=== PATIENT | female | born 1975 | race Caucasian/White ===

== ENCOUNTER 2016-08-19 22:07 | Emergency (ER) | payer OTHER ==
[~2016-08-19] VITALS: Ht 157.4 cm; Wt 108.0 kg
[~2016-08-19 22:07] MED LIST: AMOXICILLIN500 M2 PO; AUGMENTIN 875 M1 TAB PO; AUGMENTIN 875875 MG PO; BACTRIM DS 8001 TA1 PO; BALSALAZIDE DI750 MG; BENTYL10 MG; BP MED PO; CEPHALEXIN500 M1 PO; CIPRODEX 0.3%-7.5 ML OT; CLINDAMYCIN HC300 MG PO; COLACE100 MG PO; CYCLOBENZAPRINE10 MG PO; Coumadin10 MG PO; DIFLUCAN150 MG PO; FOLGARD TABLET1 EACH PO; FOLIC ACID1 MG; HYDROCHLOROTHIA25 MG PO; HYDROCODONE BIT1 T11 PO; KEFLEX500 MG PO; LASIX20 MG PO; LEVOFLOXACIN500 MG PO; LISINOPRIL10 M1 PO; LORAZEPAM2 MG PO; MOTRIN400 MG PO; MOTRIN600 MG PO; PLAVIX75 MG PO; PREDNISONE10 MG PO; PRILOSEC20 M1 PO; REMERON30 MG PO; TOPROL-XL50 MG PO; TYLENOL325 M1 PO; VALIUM10 MG; VICODIN 5/500 505 MG PO; VICODIN 500 MG-1 TAB PO; VISTARIL25 M1 PO; ZITHROMAX Z PA250 MG PO; ZOCOR20 MG PO
== END 2016-08-19 23:14 | disposition home or self-care (01) ==
LOC: ED 22:07
DX: S91.312A Laceration without foreign body, left foot, initial encounter (principal); F17.200 Nicotine dependence, unspecified, uncomplicated; D68.51 Activated protein C resistance; Z87.442 Personal history of urinary calculi; Z79.01 Long term (current) use of anticoagulants; Z79.899 Other long term (current) drug therapy; Z88.1 Allergy status to other antibiotic agents; Z88.5 Allergy status to narcotic agent; W22.8XXA Striking against or struck by other objects, initial encounter; Y93.89 Activity, other specified; Y92.89 Other specified places as the place of occurrence of the external cause; Y99.9 Unspecified external cause status

== ENCOUNTER 2016-10-15 22:05 | Emergency (ER) | payer OTHER ==
[~2016-10-15] VITALS: Ht 152.4 cm; Wt 104.3 kg
[2016-10-15] MEDS ORDERED: Motrin,Rufen800 MG PO (22:21)
== END 2016-10-15 22:28 | disposition home or self-care (01) ==
LOC: ED 22:05
DX: M67.432 Ganglion, left wrist (principal); F17.200 Nicotine dependence, unspecified, uncomplicated; Z87.442 Personal history of urinary calculi; Z98.890 Other specified postprocedural states; Z79.01 Long term (current) use of anticoagulants; Z79.899 Other long term (current) drug therapy; Z88.1 Allergy status to other antibiotic agents; Z88.5 Allergy status to narcotic agent; Z91.018 Allergy to other foods

== ENCOUNTER → 2016-12-08 | Outpatient (CLI) | payer OTHER ==
[~2016-12-08] MED LIST changes: +Motrin,Rufen800 MG PO
[2016-12-08 15:23] LABS: BASO % 0.4 % (0.0-1.0); EOS # 0.2 10*3/uL (0.0-0.4); EOS % 2.7 % (1.0-4.0); HEMATOCRIT 40.9 % (37.0-47.0); HEMOGLOBIN 13.2 g/dl (12.0-16.0); LYMPH # 1.9 10*3/uL (1.3-4.4); LYMPH % 23.2 % (27.0-41.0); MEAN CELL VOLUME 90.7 fl (81.0-99.0); MEAN CORPUSCULAR HGB 29.3 pg (27.0-31.0); MEAN CORPUSCULAR HGB CONC 32.3 g/dl (33.0-37.0); MEAN PLATELET VOLUME 9.1 fl (9.6-12.3); MONO # 1.1 10*3/uL (0.1-1.0); MONO % 13.3 % (3.0-9.0); NEUT # 4.9 10*3/uL (2.3-7.9); NEUT % 60.2 % (47.0-73.0); PLATELET COUNT AUTOMATED 431 10*3/uL (130-400); RED BLOOD COUNT 4.51 10*6/uL (4.10-5.10); RED CELL DISTRI WIDTH 14.7 % (0-14.5); WHITE BLOOD COUNT 8.2 10*3/uL (4.8-10.8)
[2016-12-08 15:57] LABS: ALBUMIN 3.5 gm/dl (3.1-4.5); BUN 5 mg/dl (7-24); CHLORIDE 104 mmol/L (98-107); CHOLESTEROL 248 mg/dL (<200); POTASSIUM 3.8 mmol/L (3.5-5.1); SGOT/AST 49 IU/L (3-35); SGPT/ALT 56 U/L (12-78); SODIUM 138 mmol/L (136-145); TOTAL PROTEIN 8.4 gm/dL (6.4-8.2); TRIGLYCERIDES 181 mg/dl (<150); VLDL CHOLESTEROL 36 mg/dL (6-40)
[2016-12-08 16:05] LABS: ALKALINE PHOSPHATASE 101 U/L (45-117); HDL CHOLESTEROL 28 mg/dl (40-60); LDL CHOLESTEROL 184 mg/dL (9-159)
== END | disposition home or self-care (01) ==
LOC: LAB 14:51
PROVIDERS: Family Medicine Adult Medicine
DX: D68.51 Activated protein C resistance (principal); E66.01 Morbid (severe) obesity due to excess calories; I10 Essential (primary) hypertension; E55.9 Vitamin D deficiency, unspecified

== ENCOUNTER → 2016-12-16 | Outpatient (CLI) | payer OTHER ==
[2016-12-16 18:55] LABS: URIC ACID 5.8 mg/dL (2.6-6.0)
[2016-12-17 05:08] LABS: RHEUMATOID ARTHRITIS FACTOR <10.0 IU/mL (0.0-13.9)
[2016-12-19 14:09] LABS: ANA DIRECT Positive (Negative)
== END | disposition home or self-care (01) ==
LOC: LAB 17:51
PROVIDERS: Family Medicine Adult Medicine
DX: M12.9 Arthropathy, unspecified (principal)

== ENCOUNTER → 2020-05-20 | Outpatient (CLI) | payer OTHER ==
[~2020-05-20] MED LIST changes: +HYDROCODONE-AC1 EAC1 PO
== END | disposition home or self-care (01) ==
LOC: COVID19 15:50
PROVIDERS: ATTEND Family Medicine
DX: Z20.822 Contact with and (suspected) exposure to COVID-19 (principal); R10.9 Unspecified abdominal pain

== ENCOUNTER 2020-06-05 15:32 | Emergency (ER) | payer OTHER ==
[~2020-06-05] VITALS: Ht 154.9 cm; Wt 99.8 kg
[~2020-06-05 15:32] MED LIST changes: -HYDROCODONE-AC1 EAC1 PO
[2020-06-05] MEDS ORDERED: HYDROCODONE-AC1 EAC1 PO (17:44)
== END 2020-06-05 18:15 | disposition home or self-care (01) ==
LOC: ED 15:32
DX: S92.252A Displaced fracture of navicular [scaphoid] of left foot, initial encounter for closed fracture (principal); S92.212A Displaced fracture of cuboid bone of left foot, initial encounter for closed fracture; I10 Essential (primary) hypertension; F32.9 Major depressive disorder, single episode, unspecified; I25.10 Atherosclerotic heart disease of native coronary artery without angina pectoris; F41.9 Anxiety disorder, unspecified; Z98.890 Other specified postprocedural states; Z91.018 Allergy to other foods; Z88.1 Allergy status to other antibiotic agents; Z88.5 Allergy status to narcotic agent; Z79.899 Other long term (current) drug therapy; Z79.2 Long term (current) use of antibiotics; Z79.01 Long term (current) use of anticoagulants; Z87.442 Personal history of urinary calculi; W10.8XXA Fall (on) (from) other stairs and steps, initial encounter; Y93.89 Activity, other specified; Y92.89 Other specified places as the place of occurrence of the external cause; Y99.8 Other external cause status

== ENCOUNTER → 2023-02-28 | Outpatient (CLI) | payer OTHER ==
[~2023-02-28] MED LIST changes: +HYDROCODONE-AC1 EAC1 PO; +LOPRESSOR50 M1 PO; +NATURE'S BLEND F1 MG PO; +OXYBUTYNIN5 MG PO; +PRILOSEC PO; +VISTARIL25 M2 PO; +XARELTO PO; -ZOCOR20 MG PO; +ZOCOR40 MG PO
== END | disposition home or self-care (01) ==
LOC: CARD 00:02
PROVIDERS: ATTEND Internal Medicine Cardiovascular Disease
DX: I51.7 Cardiomegaly (principal); R94.39 Abnormal result of other cardiovascular function study; I20.9 Angina pectoris, unspecified; R53.81 Other malaise